=== PATIENT | female | born 1970 | race Caucasian/White ===

== ENCOUNTER 2017-07-19 19:16 | Emergency (ER) | payer BC, OTHER ==
[~2017-07-19 19:16] MED LIST: Iopamidol 370 76% 100 ML VIAL ONE
[2017-07-19] MEDS ORDERED: Metoclopramide HCl 10 MG/2 ML VIAL ONE ×2 (20:12)
[2017-07-19] MEDS ORDERED: Ketorolac Tromethamine 30 MG/ML VIAL ONE (20:12)
[2017-07-19] MEDS ORDERED: Ondansetron HCl/PF 4 MG/2 ML Vial ONE (20:12)
[2017-07-19] MEDS ORDERED: MORPHINE 10 MG/ML SYRINGE ONE (20:12)
[2017-07-19 20:13] LABS: #Lymphocytes 0.8 thou/uL (1.20-3.40); #Monocytes 0.3 thou/uL (0.11-0.59); #Neutrophils 4.7 thou/uL (1.40-6.50); %Basophils 0.4 % (0.0-1.0); %Eosinophils 0.1 % (0.0-10.0); %Lymphocytes 13.7 % (21.0-51.0); %Monocytes 5.3 % (0.0-10.0); %Neutrophils 80.6 % (42.0-75.0); Hemoglobin 13.6 g/dL (12.0-16.0); Mean Corpuscular HGB CONC 33.3 g/dL (32.0-36.0); Mean Corpuscular Hemoglobin 31.9 pg (27.0-31.0); Mean Platelet Volume 6.6 fL (7.4-10.4); Platelet Count 205 thou/uL (130-400); RBC Distribution Width 10.8 % (11.5-14.5); Red Blood Cell (RBC) Count 4.27 mill/uL (4.20-5.40); White Blood Cell (WBC) Count 5.8 thou/uL (4.8-10.8)
[2017-07-19 20:13] LABS: Bilirubin Negative (Negative); Blood, Urine Trace (Negative); Clarity Cloudy (Clear); Glucose, Urine (Dipstick) Negative (Negative); Leukocyte Negative (Negative); Nitrite Negative (Negative); Protein, Urine (Dipstick) Negative (Neg-Trace); Urobilinogen 0.2 mg/dL (0.2-1.0)
[2017-07-19 20:17] LABS: Bacteria/HPF Rare-Few HPF (None Seen); WBC/HPF None Seen HPF (0-3)
[2017-07-19 20:32] LABS: ALT (SGPT) 20 U/L (8-55); AST (SGOT) 27 U/L (5-34); Albumin 4.1 g/dL (3.5-5.0); Alkaline Phosphatase 52 U/L (40-150); Anion Gap 14 mmol/L (10-20); BUN (Urea Nitrogen) 10 mg/dL (7.0-18.7); Bilirubin, Total 0.4 mg/dL (0.2-1.2); CK (CPK) 186 U/L (29-168); Calc. Creatinine Clearance 0 mL/min (70-130); Calcium 8.4 mg/dL (7.8-10.44); Carbon Dioxide 26 mmol/L (22-29); Chloride 99 mmol/L (98-107); Estimated GFR-MDRD 87; Globulin 2.9 g/dL (2.4-3.5); Glucose 120 mg/dL (70-105); Lipase 45 U/L (8-78); Potassium 3.3 mmol/L (3.5-5.1); Sodium 136 mmol/L (136-145)
--- NOTE | 2017-07-19 22:37 | CT ---
CT ABDOMEN AND PELVIS WITH CONTRAST 07/19/17 HISTORY: Right lower quadrant pain. COMPARISON: None. FINDINGS: There is some mild scarring in the lung bases. No pericardial effusion. There is abnormal submucosal fatty infiltration of the terminal ileum. The ileocecal valve also has a marked fatty infiltration. The pancreas is visualized and is normal. Small volume free fluid in the pelvis. There are a few thick walled loops of distal small bowel. Likely chronic small bowel internal hernias present through the sigmoid mesentery of no clinical significance. Liver and gallbladder are unremarkable as well as kidneys and adrenal glands. No hydronephrosis. The aortoiliac contour is normal. Skeleton is unremarkable. IMPRESSION: 1. Abnormal fatty infiltration of the submucosal of the terminal ileum as well as fatty hypertro phy of the ileocecal valve suggesting chronic inflammatory bowel disease such as Crohn's. Also, multi ple mid and distal small bowel with abnormally thick walled loops of bowel also going along with chr onic inflammatory bowel disease. 2. Normal appendix. 3. Trace free fluid in the pelvis. POS: [facility]
[2017-07-19] MEDS ORDERED: HYDROcodone/Acetaminophen 10/325 mg Tablet ONE (23:16)
[2017-07-19] MEDS ORDERED: Sulfameth/Trimethoprim DS 800-160mg TAB ONE (23:17)
[2017-07-19] MEDS ORDERED: AMOXicillin 250 MG CAP ONE (23:17)
[2017-07-19] MEDS ORDERED: predniSONE 20 MG TAB ONE (23:17)
== END 2017-07-19 23:20 | disposition home or self-care (01) ==
LOC: MADERS 19:16
DX: K52.9 Noninfective gastroenteritis and colitis, unspecified (principal); Z79.891 Long term (current) use of opiate analgesic
CPT/HCPCS: 74177; 80053; 81001; 82150; 82550; 83690; 85025; 87086; 96374; 96375; J1885; J2270; J2405; J2765; J7506